=== PATIENT | male | born 1955 | race Caucasian/White ===

== ENCOUNTER → 2017-04-08 | Outpatient (CLI) | payer OTHER ==
[~2017-04-08] MED LIST: GLIP5TAB8 PO; LISI20TA PO; METF1000 PO; OMEP20CA3 PO; SIMV80TA PO
--- NOTE | 2017-04-08 15:17 | REP ---
MR CERVICAL SPINE WITHOUT CONTRAST: HISTORY: Neck and left shoulder pain. A disc bulge with associated osteophyte formation is present at the C3-4 level. There is mild spinal cord compression. Bilateral uncinate process hypertrophy is present. This produces mild narrowing of the C3 neural foramina. A disc bulge with associated osteophyte formation is present at the C4-5 level. There is mild spinal cord compression. Bilateral uncinate process hypertrophy is present. This produces severe and moderate narrowing of the right and left C4 neural foramina, respectively. A disc bulge and small central disc protrusion with associated osteophyte formation are present at the C5-6 level. There is moderate spinal cord compression. Bilateral uncinate process hypertrophy is present. This produces moderate and severe narrowing of the right and left C5 neural foramina, respectively. A disc bulge with associate osteophyte formation is present at the C6-7 level. There is moderate effacement of the thecal sac without spinal cord compression. Bilateral uncinate process hypertrophy is present. This produces moderate and mild narrowing of the right and left C6 neural foramina, respectively. A small left paracentral disc protrusion is present at the C7-T1 level. There is minimal effacement of the thecal sac without spinal cord compression. Uncinate process and facet hypertrophy are present on the left. These findings produce mild narrowing of the left C7 neural foramen. The right C7 neural foramen is patent. Disc bulges are present at the T1-2 and T3-4 levels. There is minimal effacement of the thecal sac without spinal cord compression. The neural foramina are patent on sagittal images. There is no other disc bulge or herniation. The remaining neural foramina are patent. The spinal cord is normal in signal intensity. The C3-4 through C7-T1 intervertebral discs are decreased in height, consistent with disc degeneration. A hemangioma is present in the C7 vertebral body. Normal signal intensity is present in the remaining cervical vertebral bodies. IMPRESSION: There is cervical spondylosis at the C3-4 through C7-T1 levels, most significant at the C3-4 and C4-5 levels where there is mild spinal cord compression. There is moderate spinal cord compression at the C5-6 level. Signed by Jesus Zapata MD 04/08/2017 03:31 P
== END ==
LOC: M RAD 10:13
PROVIDERS: ATTEND Orthopaedic Surgery
DX: M43.02 Spondylolysis, cervical region (principal); G95.29 Other cord compression

== ENCOUNTER → 2017-12-05 | Outpatient (CLI) | payer OTHER | LOC: M RAD 14:02 | DX: M48.02 Spinal stenosis, cervical region (principal) ==

== ENCOUNTER → 2018-08-28 | Outpatient (CLI) | payer OTHER ==
[2018-08-28 11:28] LABS: ESTIMATED AVERAGE GLUCOSE 174 MG/DL (60-110); HEMOGLOBIN A1c 7.7 %
[2018-08-28 12:37] LABS: APPEARANCE, URINE CLEAR (CLEAR); BACTERIA, URINE AUTO NEGATIVE (NEGATIVE); BILIRUBIN, URINE AUTO NEGATIVE (NEGATIVE); BLOOD, URINE BLOOD NEGATIVE (NEGATIVE); COLOR, URINE YELLOW (YELLOW); GLUCOSE, URINE (UA) AUTO NEGATIVE (NEGATIVE); KETONE, URINE AUTO NEGATIVE (NEGATIVE); LEUKOCYTE ESTERASE, URINE AUTO NEGATIVE (NEGATIVE); NITRITE, URINE AUTO NEGATIVE (NEGATIVE); PROTEIN, URINE AUTO NEGATIVE (NEGATIVE); RBC, URINE AUTO 3 /HPF (0-3); SPECIFIC GRAVITY URINE AUTO 1.016 (1.002-1.035); SQUAMOUS EPITHELIAL CELL UR AU 0 /HPF (0-6); UROBILINOGEN, URINE AUTO 0.2 mg/dL (0.0-2.0); WBC, URINE AUTO 0 /HPF (0-3)
[2018-08-28 17:49] LABS: ALBUMIN 3.8 GM/DL (3.2-5.2); ALKALINE PHOSPHATASE 95 U/L (45-117); ALT/SGPT 20 U/L (12-78); ANION GAP 8 MEQ/L (8-16); AST/SGOT 15 U/L (7-37); BILIRUBIN,TOTAL 1.1 MG/DL (0.2-1.0); BLOOD UREA NITROGEN 19 MG/DL (7-18); CALCIUM LEVEL 9.1 MG/DL (8.8-10.2); CARBON DIOXIDE LEVEL 27 MEQ/L (21-32); CHLORIDE LEVEL 103 MEQ/L (98-107); CHOLESTEROL LEVEL 141 MG/DL (<200); CHOLESTEROL RISK RATIO 3.357 (<5); GLOMERULAR FILTRATION RATE > 60.0 (>49); GLUCOSE, FASTING 145 MG/DL (70-100); HDL CHOLESTEROL 42 MG/DL (>40); LDL CHOLESTEROL 78 MG/DL (<100); NON-HDL-C 99 MG/DL; POTASSIUM SERUM 4.4 MEQ/L (3.5-5.1); SODIUM LEVEL 138 MEQ/L (136-145); TOTAL PROTEIN 7.6 GM/DL (6.4-8.2); TRIGLYCERIDES LEVEL 105 MG/DL (<150)
== END ==
LOC: M LAB 10:25
DX: E78.5 Hyperlipidemia, unspecified (principal); E11.9 Type 2 diabetes mellitus without complications; I10 Essential (primary) hypertension
CPT/HCPCS: 80053

== ENCOUNTER → 2018-10-03 | Outpatient (REF) | payer OTHER ==
[2018-10-03 12:43] LABS: BASO # 0.1 10^3/uL (0.0-0.2); BASO % 0.6 % (0.0-1.0); EOS # 0.2 10^3/uL (0.0-0.50); EOS % 2.1 % (0.0-3.0); HEMATOCRIT 40.7 % (42.0-52.0); HEMOGLOBIN 13.4 g/dl (13.5-17.5); IMMATURE GRANULOCYTE % 0.5 % (0-3.0); LYMPH # 3.2 10^3/uL (1.5-4.5); LYMPH % 31.4 % (24.0-44.0); MEAN CORPUSCULAR HEMOGLOBIN 29.2 pg (27.0-33.0); MEAN CORPUSCULAR HGB CONC 32.9 g/dl (32.0-36.5); MEAN CORPUSCULAR VOLUME 88.7 fl (80.0-96.0); MONO # 0.8 10^3/uL (0.0-0.8); MONO % 7.7 % (0.0-5.0); NEUTROPHILS # 5.9 10^3/uL (1.8-7.7); NEUTROPHILS % 57.7 % (36.0-66.0); PLATELET COUNT, AUTOMATED 316 10^3/uL (150-450); RED BLOOD COUNT 4.59 10^6/uL (4.30-6.10); RED CELL DISTRIBUTION WIDTH 13.1 % (11.5-14.5); WHITE BLOOD COUNT 10.3 10^3/uL (4.0-10.0)
[2018-10-03 13:14] LABS: RHEUMATOID FACTOR QUANT < 10.0 IU/ML (<15.0)
[2018-10-03 13:14] LABS: C REACTIVE PROTEIN QUANTITATIV 0.78 MG/DL (0.00-0.30)
[2018-10-03 13:15] LABS: ERYTHROCYTE SEDIMENTATION RATE 22 mm/hr (0-20)
[2018-10-05 00:06] LABS: ANTINUCLEAR ANTIBODIES DIRECT Negative (Negative); Lyme Disease IgG/IgM Antibodie <0.91 ISR (0.00-0.90); Lyme Disease IgM Ab Quantitati <0.80 index (0.00-0.79)
== END ==
LOC: M LABDRAW1 12:22
DX: M25.561 Pain in right knee (principal)
CPT/HCPCS: 86140

== ENCOUNTER 2019-08-15 11:23 | Day surgery (SDC) | payer OTHER ==
[~2019-08-15] VITALS: Ht 177.8 cm; Wt 89.8 kg
[~2019-08-15 11:23] MED LIST changes: +GABA-845 PO; +INVO300T PO; +LISI10TA15 PO; -LISI20TA PO; +LISI20TA19 PO; -METF1000 PO; +METF10004 PO; +NS 1,000 ML IV ONE; -OMEP20CA3 PO; +OMEP20CA4 PO; +PRIL20TA2 PO; -SIMV80TA PO; +SIMV80TA13 PO; +ZOCO80TA PO
[2019-08-15] MEDS ORDERED: PROPOFOL 200 MG/20 ML VIAL As Ordered ONE (12:46)
[2019-08-15] MEDS ORDERED: LIDOCAINE 2% INJ 100 MG/5 ML SDV (FOR ANES.) As Ordered ONE (12:46)
--- NOTE | 2019-08-15 13:30 | ROOR ---
Patient Name: Bob Almonte Procedure Date: 08/15/2019 1:12 PM Date of : 1955 Age: 64 Room: [facility] Gender: Male Note Status: Finalized Procedure: Colonoscopy Indications: High risk colon cancer surveillance: Personal history of colonic polyps Providers: Matt Albright Jr, MD Referring MD: MAURICIO YOUNG MD Requesting Provider: Medicines: Propofol per Anesthesia Complications: No immediate complications. Procedure: Pre-Anesthesia Assessment: - Prior to the procedure, a History and Physical was performed, and patient medications and allergies were reviewed. The patient is competent. The risks and benefits of the procedure and the sedation options and risks were discussed with the patient. All questions were answered and informed consent was obtained. Patient identification and proposed procedure were verified by the physician and the nurse in the pre-procedure area and in the procedure room. Mental Status Examination: alert and oriented. Airway Examination: normal oropharyngeal airway and neck mobility. Respiratory Examination: clear to auscultation. CV Examination: normal. ASA Grade Assessment: II - A patient with mild systemic disease. After reviewing the risks and benefits, the patient was deemed in satisfactory condition to undergo the procedure. The anesthesia plan was to use moderate sedation / analgesia (conscious sedation). Immediately prior to administration of medications, the patient was re-assessed for adequacy to receive sedatives. The heart rate, respiratory rate, oxygen saturations, blood pressure, adequacy of pulmonary ventilation, and response to care were monitored throughout the procedure. The physical status of the patient was re-assessed after the procedure. The Colonoscope was introduced through the anus and advanced to the cecum, identified by appendiceal orifice and ileocecal valve. The colonoscopy was performed without difficulty. The patient tolerated the procedure well. The quality of the bowel preparation was adequate. Findings: The rectum, recto-sigmoid colon, descending colon, transverse colon, ascending colon, cecum, appendiceal orifice and ileocecal valve appeared normal. Scattered small and large-mouthed diverticula were found in the sigmoid colon. Impression: - The rectum, recto-sigmoid colon, descending colon, transverse colon, ascending colon, cecum, appendiceal orifice and ileocecal valve are normal. - Diverticulosis in the sigmoid colon. - No specimens collected. Recommendation: - Discharge patient to home (ambulatory). - Repeat colonoscopy in 5 years for surveillance. Matt Albright MD Matt Albright Jr, MD 08/15/2019 1:29:52 PM Electronically signed by Matt Albright Jr, MD Number of Addenda: 0 Note Initiated On: 08/15/2019 1:12 PM Estimated Blood Loss: Estimated blood loss: none.
[2019-08-15 13:50] VITALS: BP 148/85
== END 2019-08-15 14:10 | disposition home or self-care (01) ==
LOC: M OPP 11:23
PROVIDERS: ATTEND Surgery
DX: Z12.11 Encounter for screening for malignant neoplasm of colon (principal); Z86.010 Personal history of colon polyps; K57.30 Diverticulosis of large intestine without perforation or abscess without bleeding; Z79.84 Long term (current) use of oral hypoglycemic drugs; Z79.899 Other long term (current) drug therapy

== ENCOUNTER 2020-11-11 10:59 | Outpatient (RCR) | payer OTHER ==
[~2020-11-11 10:59] MED LIST changes: -LISI20TA19 PO; +LISI20TA35 PO; -NS 1,000 ML IV ONE; +OMEP1CAP73 PO; -OMEP20CA4 PO
[2020-12-02] MEDS ORDERED: BIMA01SOL OU (14:27)
== END 2020-12-06 ==
LOC: M PT 10:59
PROVIDERS: ATTEND Orthopaedic Surgery
DX: M16.11 Unilateral primary osteoarthritis, right hip (principal)

== ENCOUNTER → 2020-12-03 | Outpatient (CLI) | payer OTHER ==
[~2020-12-03] MED LIST changes: +BIMA01SOL OU
--- NOTE | 2020-12-03 11:03 | REP ---
INDICATION: HYPERTENSION COMPARISON: None. TECHNIQUE: PA and lateral. FINDINGS: The mediastinum and cardiac silhouette are normal. The lung jaramillo demonstrate chronic appearing changes. A subtle area of opacity in the right upper lung zone cannot be excluded. No prior examinations are available for comparison. No effusion. No pneumothorax. Skeletal structures are intact. IMPRESSION: 1. Chronic appearing changes. 2. Cannot exclude subtle opacity in the right apex. No prior examinations are available for comparison and chest CT should be considered for further investigation. <Electronically signed by Billy Garland > 12/03/20 [id number]
[2020-12-03 11:30] LABS: HEMATOCRIT 44.8 % (42.0-52.0); HEMOGLOBIN 14.7 g/dl (13.5-17.5); MEAN CORPUSCULAR HEMOGLOBIN 28.9 pg (27.0-33.0); MEAN CORPUSCULAR HGB CONC 32.8 g/dl (32.0-36.5); MEAN CORPUSCULAR VOLUME 88.2 fl (80.0-96.0); PLATELET COUNT, AUTOMATED 345 10^3/uL (150-450); RED BLOOD COUNT 5.08 10^6/uL (4.30-6.10); WHITE BLOOD COUNT 9.8 10^3/uL (4.0-10.0)
[2020-12-03 11:41] LABS: INR 0.95; PROTHROMBIN TIME 12.9 SECONDS (12.5-14.3)
[2020-12-03 12:00] LABS: ALBUMIN 3.9 GM/DL (3.2-5.2); ALT/SGPT 21 U/L (12-78); BLOOD UREA NITROGEN 37 MG/DL (7-18); CALCIUM LEVEL 9.6 MG/DL (8.8-10.2); CARBON DIOXIDE LEVEL 27 MEQ/L (21-32); CHLORIDE LEVEL 99 MEQ/L (98-107); CREATININE FOR GFR 1.14 MG/DL (0.70-1.30); GLOMERULAR FILTRATION RATE > 60.0 (>49); GLUCOSE, FASTING 217 MG/DL (70-100); POTASSIUM SERUM 4.6 MEQ/L (3.5-5.1); SODIUM LEVEL 135 MEQ/L (136-145); TOTAL PROTEIN 7.6 GM/DL (6.4-8.2)
[2020-12-03 12:14] LABS: ERYTHROCYTE SEDIMENTATION RATE 19 mm/hr (0-20)
--- NOTE | 2020-12-03 15:22 | ECGEPIP ---
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
== END ==
LOC: M LAB 09:58
PROVIDERS: ATTEND Orthopaedic Surgery
DX: Z01.818 Encounter for other preprocedural examination (principal); M16.11 Unilateral primary osteoarthritis, right hip; I10 Essential (primary) hypertension; E11.9 Type 2 diabetes mellitus without complications

== ENCOUNTER → 2020-12-05 | Outpatient (CLI) | payer OTHER | LOC: M LABSMTC 11:22 | PROVIDERS: ATTEND Anesthesiology | DX: Z01.812 Encounter for preprocedural laboratory examination (principal); Z20.822 Contact with and (suspected) exposure to COVID-19 ==

== ENCOUNTER 2020-12-10 06:21 | Inpatient (IN) | payer OTHER ==
[~2020-12-10] VITALS: Ht 177.8 cm; Wt 86.2 kg
[2020-12-10] VITALS (7 sets, daily range): BP systolic 119–138; BP diastolic 59–64
[~2020-12-10 06:21] MED LIST changes: +LIDOCAINE 1% MDV 20ML VIAL SQ PRN
[2020-12-10] MEDS ORDERED: ceFAZolin SOD 2 GM in IV 1 EA IV ONE (07:00)
[2020-12-10] MEDS ORDERED: LR 1,000 ML IV ONE (07:00)
[2020-12-10] MEDS ORDERED: TRANEXAMIC ACID 100 MG/ML 10ML VIAL As Ordered ONE (07:13)
[2020-12-10] MEDS ORDERED: BUPIVACAINE LIPOSOME/PF 1.3% 20ML VIAL (13.3MG/ML)(EXPAREL)(C9290 PER1MG) As Ordered ONE (07:14)
[2020-12-10] MEDS ORDERED: EPINEPHrine INJ 1 MG/ML 1ML AMP As Ordered ONE (07:14)
[2020-12-10] MEDS ORDERED: BUPIVACAINE HCL 0.25% 10ML VIAL As Ordered ONE (07:14)
[2020-12-10] MEDS ORDERED: ceFAZolin 1GM VIAL (J0690 PER 500MG) As Ordered ONE (07:14)
[2020-12-10] MEDS ORDERED: fentaNYL 100 MCG/2 ML INJECTION (J3010) As Ordered ONE (07:17)
[2020-12-10] MEDS ORDERED: MIDAZOLAM INJ 2MG/2ML VIAL (J2250 PER 1MG) As Ordered ONE (07:17)
[2020-12-10] MEDS ORDERED: propofoL 200 MG/20 ML VIAL As Ordered ONE (07:17)
--- NOTE | 2020-12-10 08:00 | IPN ---
PROGRESS NOTE DATE: 12/10/2020 Patient seen and examined. He wishes to go ahead with a right total hip arthroplasty. He understands the nature of this; the risks of bleeding, infection, damage to nerves and/or vessels, persistent pain, wear, loosening, dislocation, blood clots, leg length inequality, among others. He does appear to be slightly short on the right lower extremity.
[2020-12-10] MEDS ORDERED: KETOROLAC 60MG 2ML VIAL As Ordered ONE (08:47)
[2020-12-10] MEDS ORDERED: ONDANSETRON 4MG/2ML VIAL As Ordered ONE (08:47)
[2020-12-10] MEDS ORDERED: ACETAMINOPHEN 1000MG 100ML IV BTL (OFIRMEV) (J0131 PER 10MG) As Ordered ONE (08:47)
[2020-12-10] MEDS ORDERED: PHENYLephrine 500MCG 5ML (100MCG/ML) SYRINGE As Ordered ONE (08:56)
[2020-12-10] MEDS: OMEPRAZOLE 20 MG CAP PO SCH (09:00)
[2020-12-10] MEDS ORDERED: DEXTROSE 50% 50 ML SYRINGE IV PRN (09:45)
[2020-12-10] MEDS ORDERED: GLUCOSE 4GM CHEW TABLET PO PRN (09:45)
[2020-12-10] MEDS ORDERED: GLUCAGON INJ 1MG VIAL SC PRN (09:45)
[2020-12-10] MEDS ORDERED: TIMO0.5S39 OU (09:58)
[2020-12-10] MEDS ORDERED: ONDANSETRON 4MG/2ML VIAL IV PRN ×2 (10:00)
[2020-12-10] MEDS ORDERED: HYDROMORPHONE HCL 0.5 MG/ 0.5 ML SYRINGE (J1170 PER 1) IV PRN (10:00)
[2020-12-10] MEDS ORDERED: MORPHINE 2 MG/ML 1ML VIAL (J2270) IV PRN (10:00)
[2020-12-10] MEDS ORDERED: ACETAMINOPHEN TAB 650MG DOSE (2X325MG) PO PRN (10:00)
[2020-12-10] MEDS ORDERED: MORPHINE 4 MG/ML 1ML VIAL/SYRINGE (J2270) IV PRN (10:00)
[2020-12-10] MEDS ORDERED: LR 1,000 ML IV SCH ×2 (10:00)
[2020-12-10] MEDS ORDERED: fentaNYL 100 MCG/2 ML INJECTION (J3010) IV PRN (10:00)
[2020-12-10] MEDS ORDERED: PERCOCET 5MG/325MG TAB PO PRN (10:00)
--- NOTE | 2020-12-10 10:20 | REP ---
INDICATION: POST OP PLACEMENT- WILL CALL COMPARISON: None. TECHNIQUE: AP and cross-table lateral views. FINDINGS: The patient is noted to be status post right hip arthroplasty with normal appearance and positioning to the femoral and acetabular components. Overlying postsurgical changes are appreciated. IMPRESSION: Normal status post right hip arthroplasty. <Electronically signed by Billy Garland > 12/10/20 [id number]
[2020-12-10] MEDS: oxyCODONE 5MG TAB PO PRN ×2 (10:34→10:59)
[2020-12-10 11:30] LABS: BASO # 0.1 10^3/uL (0.0-0.2); BASO % 0.3 % (0.0-1.0); EOS # 0.1 10^3/uL (0.0-0.5); EOS % 0.8 % (0.0-3.0); HEMOGLOBIN 12.5 g/dl (13.5-17.5); LYMPH # 3.1 10^3/uL (1.5-5.0); LYMPH % 19.8 % (24.0-44.0); MEAN CORPUSCULAR HEMOGLOBIN 28.3 pg (27.0-33.0); MEAN CORPUSCULAR HGB CONC 32.1 g/dl (32.0-36.5); MEAN CORPUSCULAR VOLUME 88.4 fl (80.0-96.0); MONO # 1.1 10^3/uL (0.0-0.8); MONO % 6.8 % (0.0-5.0); NEUTROPHILS # 11.2 10^3/uL (1.5-8.5); NEUTROPHILS % 71.6 % (36.0-66.0); PLATELET COUNT, AUTOMATED 293 10^3/uL (150-450); RED BLOOD COUNT 4.41 10^6/uL (4.30-6.10)
[2020-12-10 11:52] LABS: WHITE BLOOD COUNT 15.6 10^3/uL (4.0-10.0)
[2020-12-10] MEDS: HumaLOG INSULIN (NovoLOG) PER UNIT SC SCH ×2 (12:00→17:20)
[2020-12-10 12:19] LABS: CHOLESTEROL RISK RATIO 3.625 (<5); MAGNESIUM LEVEL 2.2 MG/DL (1.8-2.4)
--- NOTE | 2020-12-10 12:20 | RO ---
OPERATIVE NOTE DATE OF OPERATION: 12/10/2020 PREOPERATIVE DIAGNOSIS: Right hip osteoarthritis. POSTOPERATIVE DIAGNOSIS: Right hip osteoarthritis. PROCEDURE: Right total hip arthroplasty using [place] size 6 high offset, 1.5, 40 head and 58 acetabular component. SURGEON: Darryl Rawls MD BEATER WORKER HELPER: Moshe Finch PA-C ANESTHESIA: Spinal. EBL: 200. COMPLICATIONS: None. DESCRIPTION OF PROCEDURE: The patient was taken to the operating room and placed in the left lateral decubitus position. All areas were padded appropriately. The right hip was prepped and draped in the usual sterile fashion. A timeout was performed and a longitudinal incision was made over the lateral aspect of the hip, sharply dissecting down through the subcutaneous tissue, controlling hemostasis with cautery, incised the fascia anny and identified the abductors. Anterior 40% or so of the abductor was divided off the anterior aspect of the hip as we gradually externally rotated the hip and then dislocated it. He had severe arthritis. I then used the canal-initiating reamer, the canal-finding reamer, the lateralizing reamer followed by the neck cut which was made at about to of a fingerbreadth up from the lesser trochanter using a broach as a template. The head was removed. I then prepared the acetabulum. Anterior and posterior retractors were placed and the soft tissue was removed from around the acetabulum. It was evident that he had a large anterior osteophyte. I then sequentially reamed medializing some and reamed up to a size 57 reamer which had good concentric reaming and good bleeding bone. I then irrigated, impacted in a 58 acetabular component in appropriate amount of anteversion and horizontal tilt. The apex hole eliminator was placed once we made sure that the cup was seated and then I placed the 58 x 40 acetabular component, impacted this in placed and made sure it was well seated. We directed our attention back to the femur. I used cookie cutter to remove some proximal bone and then sequentially broached up to size 6. I had reamed up to a size 6 prior to this. I then trialed off the size 6 after using calcar planer to smooth off the proximal femur and 1.5 high offset was excellent fit and soft tissue tension. I did go high offset because his anatomy preoperatively was more of a high offset angle. The trial broach was removed. Copious irrigation was performed. I implanted in the size 6 [place] stem, made sure it was well seated, this was the high offset. I then placed size 40, 1.5 head on and impacted in place, made sure it was well seated and then reduced the hip with the digital sales assistant's help, put the hip through range of motion as I had with the trial components and there was excellent soft tissue tension, excellent stability with flexion internal rotation and extension external rotation with minimal shuck in full extension. I had also removed a large anterior osteophyte prior to placement of the stem. I was overall very pleased with the components and position. I then copiously irrigated, placed TXA deep in the wound and closed the minimus and abductor with #1 Vicryl suture, excellent closure was noted. I repaired the fascia anny with #1 Vicryl suture and running Stratafix suture in both directions. I injected Exparel and Marcaine. I had irrigated in the deep tissues prior to final deep layer closure. The subcu was closed with 2-0 Vicryl and the skin with kaushal. A sterile dressing was applied and he was taken to the recovery room in stable condition. There were no known complications. The plan will be routine postop. The digital sales assistant was instrumental in holding retractors and assisting in reducing and dislocating the hip and assisting in wound closure.
[2020-12-10 12:21] LABS: BLOOD UREA NITROGEN 37 MG/DL (7-18); CALCIUM LEVEL 9.4 MG/DL (8.8-10.2); CARBON DIOXIDE LEVEL 29 MEQ/L (21-32); CHLORIDE LEVEL 103 MEQ/L (98-107); CREATININE FOR GFR 0.96 MG/DL (0.70-1.30); GLOMERULAR FILTRATION RATE > 60.0 (>49); GLUCOSE, FASTING 146 MG/DL (70-100); POTASSIUM SERUM 4.3 MEQ/L (3.5-5.1); SODIUM LEVEL 137 MEQ/L (136-145)
[2020-12-10 13:27] LABS: HEMOGLOBIN A1c 7.4 %
--- NOTE | 2020-12-10 14:41 | HPEPDOC ---
[facility] Medical History & Physical Date of Admission Dec 10, 2020 Date of Service: Dec 10, 2020 History and Physical CHIEF COMPLAINT: Right total hip replacement HISTORY OF PRESENT ILLNESS: A 65-year-old male with history of hypertension, hypercholesterolemia, diabetes, glaucoma, C3, C4 decompression with fusion, left ACL 1974 failed on conservative management for right hip oa limiting ADLS, admitted s/p elective right total hip arthroplasty. Patient had no postoperative complications. Hospitalist was asked to admit the patient with repeated surgery managing post op care including DVT prophylaxis, pain control, activity level and perioperative antibiotics. Patient otherwise denies any weight gain, weight loss, fever, chills, cough, shortness of breath, chest pain, pressure, tightness, lightheadedness, dizziness, nausea, vomiting, diarrhea, abdominal pain, changes in weight, but her blood per rectum, melena, black tarry stools, constipation, appetite, skin rashes, dysuria, urgency, frequency, bilateral upper and lower extremity weakness, headaches, sinus tenderness, ear pain, discharge, vertigo. 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 Denies alcohol, cigarette, or r ecreational drug use FAMILY HISTORY: Mother htn, dm Father CAD, HTN 2 Brother DVT postoperative ALLERGIES: Please see below. REVIEW OF SYSTEMS: 12 point system negative aside from positive findings in HPI HOME MEDICATIONS: Please see below. PHYSICAL EXAMINATION: VITAL SIGNS: See below GENERAL APPEARANCE: Awake, alert, oriented 2, answering questions appropriately. No respiratory distress HEENT: Anicteric, no jaundice U postictally, round, reactive to light accommodation. Extra muscles are intact. Dry mucous membranes. No JVD, thyromegaly, cervical lymphadenopathy CARDIOVASCULAR: S1, S2, sinus rhythm, no murmurs, rubs or gallops LUNGS: Clear to auscultation. Wheezing, rales or rhonchi ABDOMEN: Soft nontender nondistended positive bowel sounds 4 quadrants. No re bound or guarding EXTREMITIES: Postop right hip diminished sensation bilateral lower extremities and able to move his toes yet as anesthesia has not worn off. , No cyanosis, clubbing or pitting edema . Skin warm, dry, well perfused, pink in color LABORATORY DATA: See below. IMAGING: MICROBIOLOGY: Please see below. PROCEDURE DATE OF OPERATION: 12/10/2020 PREOPERATIVE DIAGNOSIS: Right hip osteoarthritis. POSTOPERATIVE DIAGNOSIS: Right hip osteoarthritis. PROCEDURE: Right total hip arthroplasty using [place] size 6 high offset, 1.5, 40 head and 58 acetabular component. SURGEON: Darryl Rawls MD PLANT SPRAYER: Moshe Finch PA-C ANESTHESIA: Spinal. EBL: 200. ASSESSMENT:A 65-year-old male with history of hypertension, hypercholesterolemia, diabetes, glaucoma, C3, C4 decompression with fusion, left ACL 1975 failed on conservative management for right hip oa limiting ADLS, admitted s/p elective right total hip arthroplasty. Patient had no postoperative complications. Hospitalist was asked to admit the patient with repeated surgery managing post op care including DVT prophylaxis, pain control, activity level and perioperative antibiotics. Patient otherwise denies any weight gain, weight loss, fever, chills, cough, shortness of breath, chest pain, pressure, tightness, lightheadedness, dizziness, nausea, vomiting, diarrhea, abdominal pain, changes in weight, but her blood per rectum, melena, black tarry stools, constipation, appetite, skin rashes, dysuria, urgency, frequency, bilateral upper and lower extremity weakness, headaches, sinus tenderness, ear pain, discharge, vertigo. No other complaints Right hip OA -s/p total RHA 12/10/20 -Postop management including perioperative antibiotics, DVT prophylaxis, pain control, bowel regimen, activity per orthopedic surgery -Started as Xarelto 10 mg daily for DVT prophylaxis -Acute rehabilitation unit screen -Activity as tolerated. Fall precautions hypertension, controlled -on lisinopril diabetes, On consistent carbohydrate diet. ISS with coverage. Hypoglycemic protocol dyslipidemia -zocor glaucoma, Resumed eyedrops C3, C4 spinal decompression with fusion, Asymptomatic CODE STATUS full code DVT prophylaxis on Xarelto Disposition await acute rehabilitation unit screen on 12/11/2020. Vital Signs Vital Signs Date Time Temp Pulse Resp B/P (MAP) Pulse Ox O2 Delivery O2 Flow Rate FiO2 12/10/20 14:01 20 12/10/20 11:45 97.3 66 132/62 (85) 97 Room Air Laboratory Data Labs 24H Laboratory Tests 2 12/10/20 07:09: Bedside Glucose (Misc Panel) 138H 12/10/20 11:15: Immature Granulocyte % (Auto) 0.7, Neutrophils (%) (Auto) 71.6H, Lymphocytes (%) (Auto) 19.8L, Monocytes (%) (Auto) 6.8H, Eosinophils (%) (Auto) 0.8, Basophils (%) (Auto) 0.3, Neutrophils # (Auto) 11.2H, Lymphocytes # (Auto) 3.1, Monocytes # (Auto) 1.1H, Eosinophils # (Auto) 0.1, Basophils # (Auto) 0.1, Nucleated Red Blood Cells % (auto) 0.0, Anion Gap 5L, Glomerular Filtration Rate > 60.0, Estimated Mean Plasma Glucose 166H, Hemoglobin A1c 7.4, Calcium Level 9.4, Magnesium Level 2.2, Triglycerides Level 123, Total Cholesterol 145, LDL Cholesterol 80, Non-HDL Cholesterol (LDL + VLDL) 105, Total HDL Cholesterol 40, Cholesterol/HDL Ratio 3.625 CBC/BMP Laboratory Tests 12/10/20 11:15 Home Medications Scheduled Bimatoprost (Lumigan) 0.01% 2.5ML Drops, 1 DROP OU QPM Canagliflozin (Invokana) 300 Mg Tablet, 300 MG PO DAILY Lisinopril/Hydrochlorothiazide (Lisinopril-Hctz 10-12.5 mg Tab) 1 Each Tablet, 1 TAB PO DAILY Metformin HCl (Metformin HCl) 1,000 Mg Tab, 1,000 MG PO BID Simvastatin (Zocor) 80 Mg Tablet, 80 MG PO DAILY Timolol Maleate (Timolol Maleate) 0.5% 5ML Drop.daily, 1 DROP OU DAILY Scheduled PRN Omeprazole Magnesium (Prilosec Otc) 20 Mg Tablet.dr, 20 MG PO DAILY PRN for INDIGESTION Allergies Coded Allergies: No Known Allergies (Unverified , 12/02/20) A-FIB/CHADSVASC A-FIB History Current/History of A-Fib/PAF?: No Current PO Anticoag Therapy: Yes IOANA BARRON MD Dec 10, 2020 14:26
[2020-12-10] MEDS ORDERED: PERCOCET 5MG/325MG TAB PO ONE (15:15)
[2020-12-10] MEDS: ceFAZolin SOD 2 GM in IV 1 EA IV SCH ×2 (15:19→23:39)
[2020-12-10] MEDS: PERCOCET 5MG/325MG TAB PO PRN (20:55)
[2020-12-10] MEDS ORDERED: LATANOPROST 0.005% OPHTH SOLN 2.5 ML OU SCH (21:00)
[2020-12-10] MEDS ORDERED: HumaLOG INSULIN (NovoLOG) PER UNIT SC SCH (21:00)
[2020-12-10] MEDS ORDERED: SIMVASTATIN 40 MG TAB PO SCH (21:00)
[2020-12-11 02:00] VITALS: BP 129/65
[2020-12-11] MEDS: PERCOCET 5MG/325MG TAB PO PRN (02:59)
[2020-12-11 06:00] VITALS: BP 130/68
[2020-12-11] MEDS ORDERED: PERC5TAB12 PO (06:29)
[2020-12-11] MEDS ORDERED: XARE10TA PO (06:29)
[2020-12-11] MEDS ORDERED: PERCOCET 5MG/325MG TAB PO ONE (08:00)
[2020-12-11] MEDS: HumaLOG INSULIN (NovoLOG) PER UNIT SC SCH ×2 (08:24→12:38)
[2020-12-11] MEDS: OMEPRAZOLE 20 MG CAP PO SCH (08:26)
[2020-12-11 08:27] VITALS: BP 132/85
[2020-12-11] MEDS ORDERED: NON-FORMULARY 1 EA EA OU SCH (09:00)
[2020-12-11] MEDS ORDERED: MIRALAX *UNIT DOSE* 17GM PACKET PO SCH (09:00)
[2020-12-11] MEDS ORDERED: TIMOLOL MALEATE 0.5% OPHTH SOLN 5 ML OU SCH (09:00)
[2020-12-11] MEDS ORDERED: MOM 30ML SUSPENSION UDC PO SCH (09:00)
--- NOTE | 2020-12-11 09:57 | IPNPDOC ---
Date Seen The patient was seen on 12/11/20. Progress Note SUBJECTIVE: Patient complains of 710 pain in the right hip, unable to sleep overnight No other complaints. No issues per nursing OBJECTIVE: PHYSICAL EXAMINATION: VITAL SIGNS: See below GENERAL APPEARANCE: No respiratory distress HEENT: Moist mucous membranes. No JVD, thyromegaly, cervical lymphadenopathy CARDIOVASCULAR: S1, S2, sinus rhythm, no murmurs, rubs or gallops LUNGS: Air entry is equal bilaterally Clear to auscultation. Wheezing, rales or rhonchi ABDOMEN: Soft nontender nondistended positive bowel sounds 4 quadrants. No rebound or guarding EXTREMITIES: Postop right hip No cyanosis, clubbing or pitting edema Skin warm, dry, well perfused, pink in color LABORATORY DATA: See below. IMAGING: MICROBIOLOGY: Please see below. PROCEDURE DATE OF OPERATION: 12/10/2020 PREOPERATIVE DIAGNOSIS: Right hip osteoarthritis. POSTOPERATIVE DIAGNOSIS: Right hip osteoarthritis. PROCEDURE: Right total hip arthroplasty using [place] size 6 high offset, 1.5, 40 head and 58 acetabular component. SURGEON: Darryl Rawls MD CRATE MAKER: Moshe Finch PA-C ANESTHESIA: Spinal. EBL: 200. ASSESSMENT:A 65-year-old male with history of hypertension, hypercholesterolemia, diabetes, glaucoma, C3, C4 decompression with fusion, left ACL 1975 failed on conservative management for right hip oa limiting ADLS, admitted s/p elective right total hip arthroplasty. Patient had no postoperative complications. Hospitalist was asked to admit the patient with repeated surgery managing post op care including DVT prophylaxis, pain control, activity level and perioperative antibiotics. Patient otherwise denies any weight gain, weight loss, fever, chills, cough, shortness of breath, chest pain, pressure, tightness, lightheadedness, dizziness, nausea, vomiting, diarrhea, abdominal pain, changes in weight, but her blood per rectum, melena, black tarry stools, constipation, appetite, skin rashes, dysuria, urgency, frequency, bilateral upper and lower extremity weakness, headaches, sinus tenderness, ear pain, discharge, vertigo. No other complaints Right hip OA -s/p total RHA 12/10/20 -Postop management including perioperative antibiotics, DVT prophylaxis, pain control, bowel regimen, activity per orthopedic surgery - Xarelto 10 mg daily for DVT prophylaxis -Acute rehabilitation unit screen -Activity as tolerated. Fall precautions -Percocet 2 tablets. Given this morning due to severe pain hypertension, controlled -on lisinopril diabetes, On consistent carbohydrate diet. ISS with coverage. Hypoglycemic protocol dyslipidemia -zocor glaucoma, Resumed eyedrops C3, C4 spinal decompression with fusion, Asymptomatic CODE STATUS full code DVT prophylaxis on Xarelto Disposition: Pending PT, OT evaluation VS, I&O, 24H, Fishbone Vital Signs/I&O Vital Signs Date Time Temp Pulse Resp B/P (MAP) Pulse Ox O2 Delivery O2 Flow Rate FiO2 12/11/20 08:27 132/85 12/11/20 08:25 18 Room Air 12/11/20 06:00 99.1 91 95 I&O- Last 24 Hours up to 6 AM 12/11/20 06:00 Intake Total 1590 ml Output Total 660 ml Balance 930 ml Laboratory Data 24H LABS Laboratory Tests 2 12/10/20 11:15: Immature Granulocyte % (Auto) 0.7, Neutrophils (%) (Auto) 71.6H, Lymphocytes (%) (Auto) 19.8L, Monocytes (%) (Auto) 6.8H, Eosinophils (%) (Auto) 0.8, Basophils (%) (Auto) 0.3, Neutrophils # (Auto) 11.2H, Lymphocytes # (Auto) 3.1, Monocytes # (Auto) 1.1H, Eosinophils # (Auto) 0.1, Basophils # (Auto) 0.1, Nucleated Red Blood Cells % (auto) 0.0, Anion Gap 5L, Glomerular Filtration Rate > 60.0, Estimated Mean Plasma Glucose 166H, Hemoglobin A1c 7.4, Calcium Level 9.4, Magnesium Level 2.2, Triglycerides Level 123, Total Cholesterol 145, LDL Cho lesterol 80, Non-HDL Cholesterol (LDL + VLDL) 105, Total HDL Cholesterol 40, Cholesterol/HDL Ratio 3.625 12/10/20 16:58: Bedside Glucose (Misc Panel) 146H 12/10/20 19:43: Bedside Glucose (Misc Panel) 174H 12/11/20 06:11: Bedside Glucose (Misc Panel) 145H CBC/BMP Laboratory Tests 12/10/20 11:15 IOANA BARRON MD Dec 11, 2020 09:57
[2020-12-11] MEDS ORDERED: RIVAROXABAN 10 MG TAB (XARELTO) PO SCH (18:00)
== END 2020-12-11 13:45 | disposition home or self-care (01) | DRG 470 ==
LOC: M SDC 06:21 → M MS5PR 11:10 → M SDC 11:21 → M MS5PR 11:22
PROVIDERS: ADMIT Orthopaedic Surgery; ATTEND Orthopaedic Surgery
PROC: 0SR902Z Replacement of Right Hip Joint with Metal on Polyethylene Synthetic Substitute, Open Approach (ICD-10-PCS; principal; 2020-12-10 07:30)
DX: M16.11 Unilateral primary osteoarthritis, right hip (principal); I10 Essential (primary) hypertension; E78.5 Hyperlipidemia, unspecified; E11.9 Type 2 diabetes mellitus without complications; H40.9 Unspecified glaucoma; Z98.1 Arthrodesis status; Z79.84 Long term (current) use of oral hypoglycemic drugs; Z79.899 Other long term (current) drug therapy

== ENCOUNTER 2020-12-30 16:36 | Outpatient (RCR) | payer OTHER ==
[~2020-12-30 16:36] MED LIST changes: -LIDOCAINE 1% MDV 20ML VIAL SQ PRN; +PERC5TAB12 PO; +TIMO0.5S39 OU; +XARE10TA PO
== END 2021-01-03 ==
LOC: M PT 16:36
PROVIDERS: ATTEND Orthopaedic Surgery
DX: Z96.641 Presence of right artificial hip joint (principal)

== ENCOUNTER 2021-01-19 16:45 | Outpatient (RCR) | payer OTHER | END 2021-02-03 | LOC: M PT 16:45 | PROVIDERS: ATTEND Orthopaedic Surgery | DX: Z47.1 Aftercare following joint replacement surgery (principal); Z96.641 Presence of right artificial hip joint ==

== ENCOUNTER → 2022-08-23 | Outpatient (REF) | payer OTHER ==
[~2022-08-23] MED LIST changes: +GABA-283 PO; -GABA-845 PO; -LISI10TA15 PO; +LISI10TA24 PO
== END ==
LOC: M SFHCDERM 16:33
PROVIDERS: ATTEND Nurse Practitioner Family
DX: L82.1 Other seborrheic keratosis (principal)

== ENCOUNTER 2023-05-04 09:47 | Emergency (ER) | payer OTHER ==
[2023-05-04] MEDS ORDERED: FENTANYL DRIP LOCK BOX KEY 1 EACH XX PRN (09:50)
[2023-05-04] MEDS ORDERED: LIDOCAINE 2% 5ML JELLY UROJET TOP ONE (09:50)
[2023-05-04] MEDS ORDERED: fentaNYL CITRATE/NaCl 1,000 MCG in IV 1 EA IV SCH (09:50)
[2023-05-04] MEDS ORDERED: MIDAZOLAM 100MG/100ML-0.9%NACL 100 MG in IV 1 EA IV SCH (09:50)
[2023-05-04] MEDS ORDERED: AMIODARONE HCL 360 MG in IV 1 EA IV SCH (09:55)
[2023-05-04 10:00] LABS: ABG BASE EXCESS -10.2 (-2.0-2.0); ABG O2 SATURATION 99.3 % (95.0-99.0); ABG PARTIAL PRESSURE CO2 41.6 mmHg (35.0-45.0); ABG PARTIAL PRESSURE O2 202.3 mmHg (75.0-100.0); ABG STANDARD HCO3 16.6 MMOL/L. (22.0-26.0); ABG TOTAL CO2 18.2 MMOL/L (23.0-31.0)
[2023-05-04 10:06] LABS: HEMOGLOBIN 13.7 g/dl (13.5-17.5); MEAN CORPUSCULAR HEMOGLOBIN 29.7 pg (27.0-33.0); MEAN CORPUSCULAR HGB CONC 31.9 g/dl (32.0-36.5); MEAN CORPUSCULAR VOLUME 93.3 fl (80.0-96.0); PLATELET COUNT, AUTOMATED 246 10^3/uL (150-450); RED BLOOD COUNT 4.61 10^6/uL (4.30-6.10); WHITE BLOOD COUNT 22.5 10^3/uL (4.0-10.0)
[2023-05-04 10:06] LABS: ABG pH (ARTERIAL) 7.228 UNITS (7.350-7.450)
[2023-05-04] MEDS ORDERED: ASPIRIN 300 MG SUPP PR STA (10:09)
[2023-05-04] MEDS ORDERED: fentaNYL 100 MCG/2 ML INJECTION As Ordered ONE (10:09)
[2023-05-04] MEDS ORDERED: HEPARIN DRIP 25,000 UNITS in IV 1 EA IV SCH (10:10)
[2023-05-04] MEDS ORDERED: HEPARIN SOD (PORCINE) 5000UNITS/ML 1ML VIAL/SYRINGE IV ONE (10:10)
[2023-05-04] MEDS ORDERED: fentaNYL 100 MCG/2 ML INJECTION IV ONE (10:10)
[2023-05-04 10:27] LABS: ATYPICAL LYMPH 11 % (0-5); LYMPHOCYTES 20 % (16-44); MONOCYTES 7 % (0-5); NEUTROPHILS 58 % (28-66)
[2023-05-04 10:28] LABS: PLATELET ESTIMATE NORMAL (NORMAL)
[2023-05-04 10:38] LABS: BLOOD UREA NITROGEN 26 MG/DL (9-23); CALCIUM LEVEL 8.9 MG/DL (8.3-10.6); CARBON DIOXIDE LEVEL 18 MMOL/L (20-31); CHLORIDE LEVEL 106 MMOL/L (98-107); CK-MB VALUE MASS 4.8 NG/ML (<3.6); CREATININE FOR GFR 1.04 MG/DL (0.70-1.30); GLOMERULAR FILTRATION RATE > 60.0 (>49); GLUCOSE, FASTING 350 MG/DL (74-106); POTASSIUM SERUM 3.9 MMOL/L (3.5-5.1); SODIUM LEVEL 135 MMOL/L (136-145)
[2023-05-04 10:46] LABS: CPK CREATINE PHOSPHOKINASE 183 U/L (46-171); INR 1.15; MB/CK RELATIVE INDEX 2.62 (< OR =4); PROTHROMBIN TIME 14.9 SECONDS (12.5-14.5)
[2023-05-04 10:47] LABS: PARTIAL THROMBOPLASTIN TIME 28.4 SECONDS (24.8-34.2)
[2023-05-04] MEDS ORDERED: propofoL 1,000 MG in IV 1 EA IV SCH (11:15)
[2023-05-04] MEDS ORDERED: propofoL 200 MG/20 ML VIAL IV ONE (11:15)
[2023-05-04] MEDS ORDERED: PROPOFOL 1,000 MG/100 ML VIAL As Ordered ONE (11:16)
[2023-05-04 11:25] VITALS: BP 168/96; TEMP 97.6; O2SAT 94
== END 2023-05-04 11:37 | disposition short-term general hospital (02) ==
LOC: M ED 09:47
DX: I46.9 Cardiac arrest, cause unspecified (principal); I24.9 Acute ischemic heart disease, unspecified; E11.9 Type 2 diabetes mellitus without complications; I10 Essential (primary) hypertension; E78.5 Hyperlipidemia, unspecified; Z79.899 Other long term (current) drug therapy; Z79.84 Long term (current) use of oral hypoglycemic drugs
CPT/HCPCS: 36600; 51702; 70450; 71045; 80047; 80048; 82550; 82553; 82803; 84484; 85025; 85610; 85730; 87635; 93005; 93041; 94760; 96365; 96367; 99285; J0283; J2250; J3010

== ENCOUNTER → 2024-12-10 | Outpatient (CLI) | payer OTHER ==
[~2024-12-10] MED LIST changes: +ASPI81CH33; +ATOR80TA59; +BENA25CA4 PO; +CLOP75TA2; +DIPH-435 PO; +FARX1TAB3; -GABA-283 PO; +GABA-284 PO; +GLIP5TAB17 PO; -GLIP5TAB8 PO; +ISOVUE-370 76% 100ML VIAL ONE; +METO1TAB32; +PANT40TA29; +PRED20TA PO; +TIMO0.5S20
== END ==
LOC: M PLAIMG 14:19
PROVIDERS: ATTEND Nurse Practitioner
DX: C49.9 Malignant neoplasm of connective and soft tissue, unspecified (principal)

== ENCOUNTER 2025-05-15 08:26 | Day surgery (SDC) | payer OTHER ==
[~2025-05-15] VITALS: Ht 177.8 cm; Wt 80.5 kg
[~2025-05-15 08:26] MED LIST changes: -ISOVUE-370 76% 100ML VIAL ONE; -TIMO0.5S39 OU; +TIMO5DRO9 OU
[2025-05-15] MEDS ORDERED: LIDOCAINE 2% 100 MG/5 ML SDV (FOR ANES.) As Ordered ONE (09:29)
[2025-05-15 09:53] VITALS: TEMP 98.3
[2025-05-15 10:13] VITALS: BP 126/80; O2SAT 100
== END 2025-05-15 10:28 | disposition home or self-care (01) ==
LOC: M OPP 08:26
PROVIDERS: ATTEND Surgery
DX: D12.6 Benign neoplasm of colon, unspecified (principal); K63.89 Other specified diseases of intestine; K57.30 Diverticulosis of large intestine without perforation or abscess without bleeding; Z86.0100 Personal history of colon polyps, unspecified; Z95.5 Presence of coronary angioplasty implant and graft; Z86.73 Personal history of transient ischemic attack (TIA), and cerebral infarction without residual deficits; G47.30 Sleep apnea, unspecified; Z79.84 Long term (current) use of oral hypoglycemic drugs; Z79.899 Other long term (current) drug therapy

== ENCOUNTER → 2025-05-20 | Outpatient (CLI) | payer OTHER | LOC: M RAD 08:06 | PROVIDERS: ATTEND Internal Medicine | DX: M79.675 Pain in left toe(s) (principal) ==

== ENCOUNTER → 2025-08-14 | Outpatient (CLI) | payer OTHER | LOC: M SLEEP HO 11:10 | PROVIDERS: ATTEND Physician Assistant | DX: R40.0 Somnolence (principal); R06.83 Snoring; G47.30 Sleep apnea, unspecified ==

== ENCOUNTER → 2025-10-27 | Outpatient (CLI) | payer OTHER | LOC: M SLEEP 20:00 | PROVIDERS: ATTEND Physician Assistant | DX: G47.33 Obstructive sleep apnea (adult) (pediatric) (principal) ==